=== PATIENT | male | born 2000 | race American Indian/Alaskan Native ===

== ENCOUNTER 2019-06-29 21:07 | Inpatient (IN) | payer OTHER ==
--- NOTE | 2019-06-29 21:14 | Emergency Department Report ---
Blank Doc - Documentation Documentation: 19-year-old male that presents with abdominal pain with n/v. This initial assessment/diagnostic orders/clinical plan/treatment(s) is/are subject to change based on patient's health status, clinical progression and re- assessment by fellow clinical providers in the ED. Further treatment and workup at subsequent clinical providers discretion. Patient/guardians urged not to elope from the ED as their condition may be serious if not clinically assessed and managed. Initial orders include: 1- Patient sent to [facility] for further evaluation and treatment 2- labs 3- UA
[2019-06-29 23:03] LABS: Bacteria,Urine 1+ /HPF (Negative); Bilirubin,Urine NEG (Negative); Blood,Urine NEG (Negative); Color,Urine Yellow (Yellow); Mucus,Urine 2+ /HPF; Protein,Urine <15 mg/dL mg/dL (Negative); Urobilinogen,Urine < 2.0 mg/dL (<2.0)
--- NOTE | 2019-06-29 23:15 | Emergency Department Report ---
ED Abdominal Pain HPI - General Chief Complaint: Abdominal Pain Stated Complaint: ABD PAIN Time Seen by Provider: 06/30/19 00:30 Source: patient Mode of arrival: Ambulatory Limitations: No Limitations - History of Present Illness Initial Comments: Patient is a 19-year-old male that presents emergency room with complaints of abdominal pain that started this morning. Patient also complains of nausea and vomiting. Patient states is not helping him down. Patient states he thought was a stomachache and he took peter tyron and he threw it up several times. Patient denies to take any medication. Patient states the pain is a 9 out of 10. Patient states the pain is worse with movement. Patient states the pain is better with rest. MD Complaint: abdominal pain -: Sudden Location: LLQ Radiation: none Migration to: no migration Severity: severe Severity scale (0 -10): 10 Quality: stabbing Consistency: constant Improves With: rest Worsens With: vomiting, movement Associated Symptoms: nausea, vomiting. denies: diarrhea, fever, chills, constipation, dysuria, hematemesis, hematochezia, melena, hematuria, anorexia, syncope - Related Data Home Medications Medication Instructions Recorded Confirmed Last Taken Biktarvy 50-200-25 mg (Nf) 1 tab PO DAILY 06/30/19 06/30/19 1 Day Ago ~06/29/19 Allergies Allergy/AdvReac Type Severity Reaction Status Date / Time Penicillins Allergy Rash Verified 06/29/19 21:12 ED Review of Systems ROS: Stated complaint: ABD PAIN Other details as noted in HPI Constitutional: denies: chills, fever Eyes: denies: eye pain, eye discharge, vision change ENT: denies: ear pain, throat pain Respiratory: denies: cough, shortness of breath, wheezing Cardiovascular: denies: chest pain, palpitations Endocrine: no symptoms reported Gastrointestinal: abdominal pain, nausea, vomiting. denies: diarrhea Genitourinary: denies: urgency, dysuria Musculoskeletal: denies: back pain, joint swelling, arthralgia Skin: denies: rash, lesions Neurological: denies: headache, weakness, paresthesias Psychiatric: denies: anxiety, depression Hematological/Lymphatic: denies: easy bleeding, easy bruising ED Past Medical Hx - Past Medical History Previous Medical History?: Yes Hx HIV: Yes Additional medical history: HIV + - Surgical History Past Surgical History?: No - Family History Family history: no significant - Social History Smoking Status: Never Smoker Substance Use Type: None - Medications Home Medications: Home Medications Medication Instructions Recorded Confirmed Last Taken Type Biktarvy 50-200-25 mg (Nf) 1 tab PO DAILY 06/30/19 06/30/19 1 Day Ago History ~06/29/19 ED Physical Exam - General Limitations: No Limitations General appearance: alert, in no apparent distress - Head Head exam: Present: atraumatic, normocephalic - Eye Eye exam: Present: normal appearance - ENT ENT exam: Present: mucous membranes moist - Neck Neck exam: Present: normal inspection - Respiratory Respiratory exam: Present: normal lung sounds bilaterally. Absent: respiratory distress - Cardiovascular Cardiovascular Exam: Present: regular rate, normal rhythm. Absent: systolic murmur, diastolic murmur, rubs, gallop - GI/Abdominal GI/Abdominal exam: Present: soft, tenderness (Left lower quadrant tenderness), normal bowel sounds - Rectal Rectal exam: Present: deferred - Extremities Exam Extremities exam: Present: normal inspection - Back Exam Back exam: Present: normal inspection - Neurological Exam Neurological exam: Present: alert, oriented X3 - Psychiatric Psychiatric exam: Present: normal affect, normal mood - Skin Skin exam: Present: warm, dry, intact, normal color. Absent: rash ED Course Vital Signs 06/29/19 06/29/19 06/29/19 21:13 23:08 23:45 Temperature 100.5 F H 99.7 F H Pulse Rate 105 H 97 H Respiratory 20 16 17 Rate Blood Pressure 111/80 Blood Pressure 122/72 [Right] O2 Sat by Pulse 98 100 98 Oximetry 06/30/19 06/30/19 06/30/19 00:56 01:45 02:00 Temperature Pulse Rate 95 H 98 H 102 H Respiratory 22 17 12 Rate Blood Pressure 79/30 87/42 Blood Pressure 89/32 [Right] O2 Sat by Pulse 95 97 97 Oximetry 06/30/19 06/30/19 06/30/19 02:08 02:15 02:30 Temperature 99.7 F H Pulse Rate 102 H 102 H 103 H Respiratory 17 14 20 Rate Blood Pressure 90/37 94/42 Blood Pressure 90/46 [Right] O2 Sat by Pulse 96 96 96 Oximetry 06/30/19 06/30/19 06/30/19 02:48 03:00 03:15 Temperature 100.2 F H Pulse Rate 104 H 102 H 111 H Respiratory 16 22 12 Rate Blood Pressure 84/35 91/38 Blood Pressure 92/58 [Right] O2 Sat by Pulse 97 96 96 Oximetry 06/30/19 06/30/19 06/30/19 03:21 03:30 03:45 Temperature Pulse Rate 105 H 107 H 101 H Respiratory 17 30 H 33 H Rate Blood Pressure 78/34 91/40 Blood Pressure 99/46 [Right] O2 Sat by Pulse 96 96 95 Oximetry 06/30/19 06/30/19 06/30/19 04:00 04:15 04:30 Temperature Pulse Rate 103 H 105 H 112 H Respiratory 18 13 12 Rate Blood Pressure 92/36 97/40 91/39 Blood Pressure [Right] O2 Sat by Pulse 96 94 96 Oximetry 06/30/19 06/30/19 06/30/19 04:45 04:46 05:15 Temperature 98.6 F Pulse Rate 103 H 105 H 99 H Respiratory 16 18 14 Rate Blood Pressure 100/43 95/53 Blood Pressure 98/53 [Right] O2 Sat by Pulse 95 96 96 Oximetry 06/30/19 06/30/19 06/30/19 05:17 05:30 05:45 Temperature Pulse Rate 104 H 100 H 97 H Respiratory 14 24 27 H Rate Blood Pressure 89/32 89/47 Blood Pressure 95/53 [Right] O2 Sat by Pulse 97 96 95 Oximetry 06/30/19 06/30/19 06/30/19 06:00 06:15 06:30 Temperature Pulse Rate 102 H 100 H 102 H Respiratory 27 H 28 H 27 H Rate Blood Pressure 82/46 94/46 95/45 Blood Pressure [Right] O2 Sat by Pulse 95 96 95 Oximetry 06/30/19 06/30/19 06/30/19 06:41 06:45 06:46 Temperature Pulse Rate 95 H 102 H 105 H Respiratory 26 H 18 17 Rate Blood Pressure 116/58 Blood Pressure 105/53 116/58 [Right] O2 Sat by Pulse 96 96 97 Oximetry 06/30/19 06/30/19 06/30/19 07:00 07:15 07:30 Temperature 99.3 F Pulse Rate 98 H 91 H 91 H Respiratory 29 H 27 H 27 H Rate Blood Pressure 104/61 101/57 104/56 Blood Pressure [Right] O2 Sat by Pulse 95 95 96 Oximetry 06/30/19 06/30/19 06/30/19 07:45 08:00 08:15 Temperature Pulse Rate 109 H 92 H 91 H Respiratory 13 27 H 26 H Rate Blood Pressure 105/50 100/49 103/54 Blood Pressure [Right] O2 Sat by Pulse 97 95 96 Oximetry 06/30/19 06/30/19 06/30/19 08:30 08:45 09:00 Temperature Pulse Rate 89 83 83 Respiratory 26 H 24 22 Rate Blood Pressure 101/48 95/51 98/59 Blood Pressure [Right] O2 Sat by Pulse 95 96 95 Oximetry 06/30/19 06/30/19 06/30/19 09:15 09:30 09:45 Temperature Pulse Rate 94 H 85 77 Respiratory 14 27 H 20 Rate Blood Pressure 100/64 109/64 113/64 Blood Pressure [Right] O2 Sat by Pulse 98 95 98 Oximetry 06/30/19 06/30/19 06/30/19 10:00 10:15 10:30 Temperature Pulse Rate 84 77 81 Respiratory 18 17 19 Rate Blood Pressure 99/51 101/59 101/59 Blood Pressure [Right] O2 Sat by Pulse 96 97 Oximetry 06/30/19 06/30/19 06/30/19 10:45 11:00 11:15 Temperature Pulse Rate 95 H 77 79 Respiratory 23 26 H 17 Rate Blood Pressure 103/67 109/71 110/74 Blood Pressure [Right] O2 Sat by Pulse 98 98 99 Oximetry 06/30/19 06/30/19 06/30/19 11:30 11:45 12:00 Temperature Pulse Rate 86 83 76 Respiratory 17 9 L 10 L Rate Blood Pressure 103/67 99/59 99/57 Blood Pressure [Right] O2 Sat by Pulse 97 98 97 Oximetry 06/30/19 06/30/19 06/30/19 12:15 12:30 12:45 Temperature Pulse Rate 87 83 77 Respiratory 16 15 24 Rate Blood Pressure 106/64 112/74 111/73 Blood Pressure [Right] O2 Sat by Pulse 98 98 98 Oximetry 06/30/19 06/30/19 06/30/19 13:00 13:15 13:30 Temperature Pulse Rate 82 81 84 Respiratory 15 11 L 16 Rate Blood Pressure 102/58 98/58 102/63 Blood Pressure [Right] O2 Sat by Pulse 99 98 98 Oximetry 06/30/19 06/30/19 06/30/19 13:45 14:00 14:15 Temperature Pulse Rate 101 H 95 H 95 H Respiratory 13 13 17 Rate Blood Pressure 103/67 106/70 106/80 Blood Pressure [Right] O2 Sat by Pulse 98 98 97 Oximetry 06/30/19 06/30/19 06/30/19 14:30 14:45 15:00 Temperature Pulse Rate 91 H 88 84 Respiratory 28 H 13 29 H Rate Blood Pressure 116/74 110/62 115/70 Blood Pressure [Right] O2 Sat by Pulse 97 97 98 Oximetry 06/30/19 06/30/19 06/30/19 15:15 15:30 15:45 Temperature Pulse Rate 81 82 84 Respiratory 23 12 20 Rate Blood Pressure 112/67 117/75 123/83 Blood Pressure [Right] O2 Sat by Pulse 98 99 98 Oximetry 06/30/19 06/30/19 06/30/19 16:00 16:15 19:00 Temperature Pulse Rate 88 84 84 Respiratory 23 25 H 18 Rate Blood Pressure 115/82 120/80 117/82 Blood Pressure [Right] O2 Sat by Pulse 99 99 99 Oximetry 06/30/19 06/30/19 19:30 20:00 Temperature Pulse Rate 83 85 Respiratory 23 19 Rate Blood Pressure 120/79 121/79 Blood Pressure [Right] O2 Sat by Pulse 98 99 Oximetry - Reevaluation(s) Reevaluation #1: Patient has received 1 L of fluid and his blood pressure has decreased. Patient will receive another liter of fluid. We will continue to monitor blood pressure. 06/30/19 01:01 Reevaluation #2: I discussed all results with patient. I discussed plan of care with patient. Patient agrees with plan of care and admission. Patient to be admitted to the hospitalist service. 06/30/19 01:36 Reevaluation #3: Blood pressure starting to improve. We will continue to monitor blood pressure. Patient is already admitted. 06/30/19 02:38 Reevaluation #4: I discussed the need for central line. Patient refuses central line. Patient states he does not want to have one in his body. I discussed the risk with patient. Patient voiced understanding of the risk and benefits. Patient still refused. Patient will remain on the monitor. Patient's blood pressure is 90/38. 06/30/19 03:14 - Consultations Consultation #1: Hospitalist consulted for admission. Hospitalist to admit patient. Bridge orders placed. 06/30/19 01:37 ED Medical Decision Making - Lab Data Result diagrams: 06/30/19 04:15 06/30/19 04:15 - Radiology Data Radiology results: report reviewed CT ABDOMEN AND PELVIS WITH CONTRAST INDICATION / CLINICAL INFORMATION: Pt complains of L.L.Q. abd pain with nausea vomiting.. TECHNIQUE: Axial CT images were obtained through the abdomen and pelvis after 100 mL Omnipaque [address] scans at this location are performed using CT dose reduction for ALARA by means of automated exposure control. COMPARISON: None available. FINDINGS: LOWER CHEST: No significant abnormality. LIVER: No significant abnormality. GALLBLADDER: No significant abnormality. BILE DUCTS: No significant abnormality. PANCREAS: No significant abnormality. SPLEEN: No significant abnormality. ADRENALS: No significant abnormality. RIGHT KIDNEY and URETER: No significant abnormality. LEFT KIDNEY and URETER: No significant abnormality. STOMACH and SMALL BOWEL: Fluid-filled, nondilated loops of small bowel may represent enteritis. No obstruction. COLON: No significant abnormality. APPENDIX: No significant abnormality. PERITONEUM: No free fluid. No free air. No fluid collection. LYMPH NODES: No significant adenopathy. AORTA and ARTERIES: No significant abnormality. IVC and VEINS: No significant abnormality. URINARY BLADDER: No significant abnormality. REPRODUCTIVE ORGANS: No significant abnormality. ADDITIONAL FINDINGS: None. SKELETAL SYSTEM: No significant abnormality. IMPRESSION: 1. No inflammatory process or bowel obstruction. 2. Fluid-filled, nondilated loops of small bowel which could represent enter itis. - Medical Decision Making Patient is a 19-year-old male who presents emergency room with complaints of abdominal pain. Patient abdominal pain is left lower quadrant. Patient also having nausea and vomiting. Patient had labs done which showed an elevated WBC. Patient's lactic acid was normal. Found to be hypotensive. Patient given multiple liters of fluid. After the 4 L of fluid and the patient's map was still below 70, I recommended central line placement and pressor use. Patient refused to have a central line placed. Patient voiced understanding of the risk. We then discussed the pressure and the patient stated he would rather try fluids before going on to pressors. Patient had blood cultures done. Patient given antibiotics in early in his visit. Patient admitted to the hospitalist service. Critical care documented due to multiple re-evaluations and blood pressure management. - Differential Diagnosis fever, abd pain, hypotension. gsatroenteritis. sirs, diverticulitis Critical Care Time: Yes Critical care time in (mins) excluding proc time.: 65 Critical care attestation.: If time is entered above; I have spent that time in minutes in the direct care of this critically ill patient, excluding procedure time. Critical Care Time: 65 minutes ED Disposition Clinical Impression: SIRS (systemic inflammatory response syndrome), Gastroenteritis, Hyperkalemia Abdominal pain Qualifiers: Abdominal location: left lower quadrant Qualified Code(s): R10.32 - Left lower quadrant pain Nausea & vomiting Qualifiers: Vomiting type: unspecified Vomiting Intractability: non-intractable Qualified Code(s): R11.2 - Nausea with vomiting, unspecified Hypotension Qualifiers: Hypotension type: unspecified hypotension type Qualified Code(s): I95.9 - Hypotension, unspecified Disposition: DC-09 OP ADMIT IP TO THIS HOSP Is pt being admited?: Yes Does the pt Need Aspirin: No Condition: Critical Time of Disposition: 01:30
[2019-06-29] MEDS ORDERED: ACETAMINOPHEN 500 MG TAB PO ONE (23:39)
[2019-06-29] MEDS ORDERED: SODIUM CHLORIDE 0.9% 1000 ML 1,000 ML IV ONE (23:40)
[2019-06-29] MEDS ORDERED: SODIUM CHLORIDE 0.9% 1000 ML 1,000 ML ONE (23:41)
[2019-06-29 23:42] LABS: Basophils % (Auto) 0.2 % (0.0-1.8); Eosinophils % (Auto) 0.1 % (0.0-4.3); Hematocrit 45.2 % (35.5-45.6); Hemoglobin 15.4 gm/dl (11.8-15.2); Lymphocytes # (Auto) 0.7 K/mm3 (1.2-5.4); Lymphocytes % (Auto) 5.6 % (13.4-35.0); Mean Corpuscular HGB Conc 34 % (32-34); Mean Corpuscular Volume 94 fl (84-94); Monocytes % (Auto) 7.6 % (0.0-7.3); Platelet Count 170 K/mm3 (140-440); Red Cell Distribution Width 12.3 % (13.2-15.2)
[2019-06-29] MEDS ORDERED: ACETAMINOPHEN 500 MG TAB ONE (23:42)
[2019-06-30 00:08] LABS: BUN/Creatinine Ratio 14; Blood Urea Nitrogen 13 mg/dL (9-20); Calcium 10.3 mg/dL (8.4-10.2); Hemolysis Index 241
[2019-06-30] MEDS ORDERED: ONDANSETRON 4 MG/2 ML INJ IV ONE (00:11)
[2019-06-30] MEDS ORDERED: HYDROmorphone 1 MG/1 ML INJ IV ONE (00:11)
[2019-06-30 00:14] LABS: Alanine Aminotransferase 10 units/L (7-56)
[2019-06-30] MEDS ORDERED: SODIUM CHLORIDE 0.9% 1000 ML 1,000 ML IV ONE ×5 (00:58→03:56)
--- NOTE | 2019-06-30 01:25 | Cat Scan Report ---
CT ABDOMEN AND PELVIS WITH CONTRAST INDICATION / CLINICAL INFORMATION: Pt complains of L.L.Q. abd pain with nausea vomiting.. TECHNIQUE: Axial CT images were obtained through the abdomen and pelvis after 100 mL Omnipaque [address] scans at this location are performed using CT dose reduction for ALARA by means of automated exposure control. COMPARISON: None available. FINDINGS: LOWER CHEST: No significant abnormality. LIVER: No significant abnormality. GALLBLADDER: No significant abnormality. BILE DUCTS: No significant abnormality. PANCREAS: No significant abnormality. SPLEEN: No significant abnormality. ADRENALS: No significant abnormality. RIGHT KIDNEY and URETER: No significant abnormality. LEFT KIDNEY and URETER: No significant abnormality. STOMACH and SMALL BOWEL: Fluid-filled, nondilated loops of small bowel may represent enteritis. No ob struction. COLON: No significant abnormality. APPENDIX: No significant abnormality. PERITONEUM: No free fluid. No free air. No fluid collection. LYMPH NODES: No significant adenopathy. AORTA and ARTERIES: No significant abnormality. IVC and VEINS: No significant abnormality. URINARY BLADDER: No significant abnormality. REPRODUCTIVE ORGANS: No significant abnormality. ADDITIONAL FINDINGS: None. SKELETAL SYSTEM: No significant abnormality. IMPRESSION: 1. No inflammatory process or bowel obstruction. 2. Fluid-filled, nondilated loops of small bowel which could represent enteritis. Signer Name: Beatrice Isbell MD Signed: 06/30/2019 1:20 AM Workstation Name: [id number]
[2019-06-30] MEDS ORDERED: IBUPROFEN 800 MG TAB PO ONE (02:53)
[2019-06-30] MEDS ORDERED: IBUPROFEN 800 MG TAB ONE (02:54)
[2019-06-30] MEDS ORDERED: metroNIDAZOLE/NS 500 MG/100 ML 500 MG/100 ML BAG IV ONE ×3 (03:52→19:45)
--- NOTE | 2019-06-30 03:59 | History and Physical Report ---
History of Present Illness History of present illness: 19-year-old man with a history of HIV, compliant with medications comes emergency room with complaints of nausea vomiting, diarrhea. Symptoms started today, has had multiple episodes of nausea vomiting, diarrhea. He complains of crampy abdominal pain in the left lower quadrant, intermittent every 5 minutes, intensity 5/10, no radiation, cannot identify exacerbating or relieving factors. No cough, recent travel or sick contacts. Patient has been febrile in the ER, blood pressure has been low, lowest in the 70s, he refused to have a central line. Patient will be admitted for fever gastroenteritis, possible cOVID Review Of Systems: Constitutional: no weight loss, chills Ears, eyes, nose, mouth and throat: no nasal congestion, no nasal discharge, no sinus pressure, blurry vision, diplopia Neck: No neck pain or rigidity. Cardiovascular: No palpitations, chest pain Respiratory: No shortness of breath, cough Gastrointestinal: No hematochezia Genitourinary : no dysuria, frequency Musculoskeletal: no muscle ache , joint pain Integumentary: no rash, no pruritis Neurological: no parathesias, focal weakness Endocrine: no cold or heat intolerance, no polyuria or polydipsia Hematologic/Lymphatic: no easy bruising, no easy bleeding, no gland swelling Allergic/Immunologic: no urticaria, no angioedema. PAST MEDICAL HISTORY: HIV PAST SURGICAL HISTORY: None SOCIAL HISTORY: Denies alcohol, tobacco, drugs FAMILY HISTORY: Hypertension Medications and Allergies Allergies Allergy/AdvReac Type Severity Reaction Status Date / Time Penicillins Allergy Rash Verified 06/29/19 21:12 Home Medications Medication Instructions Recorded Confirmed Last Taken Type Biktarvy 50-200-25 mg (Nf) 1 tab PO DAILY 06/30/19 06/30/19 1 Day Ago History ~06/29/19 Active Meds: Active Medications Metronidazole (Flagyl 500 Mg/100 Ml) 500 mg in 100 mls @ 200 mls/hr IV ONCE O NE; Protocol Stop: 06/30/19 04:21 Sodium Chloride (Nacl 0.9% 1000 Ml) 1,000 mls @ 999 mls/hr IV BOLUS ONE Stop: 06/30/19 04:55 Sodium Chloride (Nacl 0.9% 1000 Ml) 1,000 mls @ 999 mls/hr IV BOLUS ONE Stop: 06/30/19 04:56 Exam - Physical Exam Narrative exam: Gen. appearance: Patient lying in bed, no apparent distress HEENT: Normocephalic, atraumatic, pupils equally round and reactive to light, extraocular movement intact, and no sclericterus,. No JVD or thyromegaly or nodule,neck supple, no carotid bruit ,mucous membranes moist, no exudate or erythema Heart: S1, S2, regular rate and rhythm Lungs: Clear bilaterally, breathing comfortable Abdomen: Positive bowel sounds, nontender, nondistended, no organomegaly Extremity: no edema, cyanosis, clubbing Skin: No rash, nodules, warm, dry Neuro: Cranial nerves II to XII intact, speech is fluent, moves extremities, sensory intact - Constitutional Vitals: Temp Pulse Resp BP Pulse Ox 100.2 F H 107 H 30 H 78/34 96 06/30/19 02:48 06/30/19 03:30 06/30/19 03:30 06/30/19 03:30 06/30/19 03:30 Results - Labs CBC & Chem 7: 06/30/19 04:15 07/01/19 06:54 Labs: Abnormal lab results 06/29/19 06/29/19 06/29/19 Range/Units 23:23 23:23 Unknown WBC 13.3 H (4.5-11.0) K/mm3 Hgb 15.4 H (11.8-15.2) gm/dl RDW 12.3 L (13.2-15.2) % Lymph % (Auto) 5.6 L (13.4-35.0) % Dale % (Auto) 7.6 H (0.0-7.3) % Lymph # 0.7 L (1.2-5.4) K/mm3 Dale # 1.0 H (0.0-0.8) K/mm3 Seg Neutrophils % 86.5 H (40.0-70.0) % Seg Neutrophils # 11.5 H (1.8-7.7) K/mm3 Potassium 5.1 H (3.6-5.0) mmol/L Glucose 114 H (75-100) mg/dL Calcium 10.3 H (8.4-10.2) mg/dL Total Bilirubin 1.60 H (0.1-1.2) mg/dL Total Protein 8.5 H (6.3-8.2) g/dL Lipase 11 L (13-60) units/L Urine pH 8.0 H (5.0-7.0) - Imaging and Cardiology EKG: image reviewed CT scan - abdomen: report reviewed CT scan - pelvis: report reviewed Assessment and Plan Assessment Gastroenteritis, rule out cOVID Start IV fluids, Flagyl, Levaquin Give a dose of Vanco, consult ID send stool for cultures, C. difficile, check influenza COVID form filled out, placed on contact and droplet isolation Relative hypotension Fluid resuscitate DVT prophylaxis
[2019-06-30] MEDS ORDERED: VANCOMYCIN/NS 1 GM/250 ML 1 GM/250 ML BAG IV ONE (04:00)
[2019-06-30] MEDS ORDERED: METOCLOPRAMIDE 10 MG/2 ML INJ IV PRN (04:01)
[2019-06-30] MEDS ORDERED: ONDANSETRON 4 MG/2 ML INJ IV PRN (04:01)
[2019-06-30] MEDS ORDERED: ACETAMINOPHEN 325 MG TAB PO PRN (04:01)
[2019-06-30] MEDS: metroNIDAZOLE/NS 500 MG/100 ML 500 MG/100 ML BAG IV SCH ×3 (04:05→19:48)
[2019-06-30 04:45] LABS: Basophils % (Auto) 0.2 % (0.0-1.8); Hematocrit 35.7 % (35.5-45.6); Hemoglobin 12.4 gm/dl (11.8-15.2); Lymphocytes # (Auto) 0.7 K/mm3 (1.2-5.4); Lymphocytes % (Auto) 6.1 % (13.4-35.0); Mean Corpuscular HGB Conc 35 % (32-34); Mean Corpuscular Volume 95 fl (84-94); Monocytes # (Auto) 0.8 K/mm3 (0.0-0.8); Monocytes % (Auto) 7.3 % (0.0-7.3); Platelet Count 131 K/mm3 (140-440); Red Blood Count 3.77 M/mm3 (3.65-5.03); Red Cell Distribution Width 12.3 % (13.2-15.2)
[2019-06-30 04:57] LABS: BUN/Creatinine Ratio 13; Blood Urea Nitrogen 10 mg/dL (9-20); Calcium 8.2 mg/dL (8.4-10.2); Hemolysis Index 14
[2019-06-30] MEDS ORDERED: SODIUM CHLORIDE 0.9% 1000 ML 1,000 ML ONE (05:27)
[2019-06-30] MEDS: SODIUM CHLORIDE 0.9% 1000 ML 1,000 ML IV SCH (05:36)
[2019-06-30] MEDS ORDERED: ENOXAPARIN 40 MG/0.4 ML INJ SUB-Q SCH (10:00)
--- NOTE | 2019-06-30 11:36 | Progress Note ---
Assessment and Plan Assessment and plan: --Gastroenteritis, rule out cOVID Start IV fluids, Flagyl, Levaquin Give a dose of Vanco, consult ID send stool for cultures, C. difficile, check influenza COVID form filled out by admitting /ER physician, placed on contact and droplet isolation COVID 19 test send this afternoon ID evaluation and recommendations noted and appreciated --Leukocytosis; present on admission Improved --Hypokalemia; replaced with KCl Monitor electrolytes --Hypotension; present on admission Fluid resuscitation, mild improvement --History of HIV/AIDS; on antiretrovirals --DVT prophylaxis; Lovenox Monitor closely and adjust management as needed Contact and droplet isolation Follow [facility] department for Covid test results Patient feels that he is doing well, and does not want to stay in the hospital Risks and consequences and complications of refusing the treatment Was explained to him in detail, he insisted to leave AMA I discussed patient's concerns and plans of leaving AMA with the patient's nurse Advanced care 35 minutes History Interval history: Patient seen and evaluated in ER awaiting bed assignment Patient's chart, medications, imaging studies and tests reviewed Hospitalist Physical - Constitutional Vitals: Temp Pulse Resp BP Pulse Ox 99.3 F 83 22 98/59 95 06/30/19 07:30 06/30/19 09:00 06/30/19 09:00 06/30/19 09:00 06/30/19 09:00 General appearance: Present: no acute distress, well-nourished - EENT Eyes: Present: PERRL, EOM intact - Neck Neck: Present: supple, normal ROM - Respiratory Respiratory effort: normal Respiratory: bilateral: diminished, rhonchi, wheezing, negative: rales - Cardiovascular Rhythm: regular Heart Sounds: Present: S1 & S2 - Extremities Extremities: no ischemia, No edema - Abdominal General gastrointestinal: soft, non-tender, non-distended, normal bowel sounds - Integumentary Integumentary: Present: clear, warm - Psychiatric Psychiatric: appropriate mood/affect, cooperative - Neurologic Neurologic: moves all extremities Results - Labs CBC & Chem 7: 06/30/19 04:15 06/30/19 04:15 Labs: Laboratory Last Values WBC 11.0 K/mm3 (4.5-11.0) 06/30/19 04:15 RBC 3.77 M/mm3 (3.65-5.03) 06/30/19 04:15 Hgb 12.4 gm/dl (11.8-15.2) D 06/30/19 04:15 Hct 35.7 % (35.5-45.6) D 06/30/19 04:15 MCV 95 fl (84-94) H 06/30/19 04:15 MCH 33 pg (28-32) H 06/30/19 04:15 MCHC 35 % (32-34) H 06/30/19 04:15 RDW 12.3 % (13.2-15.2) L 06/30/19 04:15 Plt Count 131 K/mm3 (140-440) L 06/30/19 04:15 Lymph % (Auto) 6.1 % (13.4-35.0) L 06/30/19 04:15 [place] % (Auto) 7.3 % (0.0-7.3) 06/30/19 04:15 Eos % (Auto) 0.0 % (0.0-4.3) 06/30/19 04:15 Baso % (Auto) 0.2 % (0.0-1.8) 06/30/19 04:15 Lymph # 0.7 K/mm3 (1.2-5.4) L 06/30/19 04:15 [place] # 0.8 K/mm3 (0.0-0.8) 06/30/19 04:15 Eos # 0.0 K/mm3 (0.0-0.4) 06/30/19 04:15 Baso # 0.0 K/mm3 (0.0-0.1) 06/30/19 04:15 Seg Neutrophils % 86.4 % (40.0-70.0) H 06/30/19 04:15 Seg Neutrophils # 9.5 K/mm3 (1.8-7.7) H 06/30/19 04:15 Sodium 139 mmol/L (137-145) 06/30/19 04:15 Potassium 3.4 mmol/L (3.6-5.0) L D 06/30/19 04:15 Chloride 104.6 mmol/L (98-107) 06/30/19 04:15 Carbon Dioxide 20 mmol/L (22-30) L 06/30/19 04:15 Anion Gap 18 mmol/L 06/30/19 04:15 BUN 10 mg/dL (9-20) 06/30/19 04:15 Creatinine 0.8 mg/dL (0.8-1.5) 06/30/19 04:15 Estimated GFR > 60 ml/min 06/30/19 04:15 BUN/Creatinine Ratio 13 % 06/30/19 04:15 Glucose 104 mg/dL (75-100) H 06/30/19 04:15 Lactic Acid 0.70 mmol/L (0.7-2.0) 06/30/19 03:54 Calcium 8.2 mg/dL (8.4-10.2) L D 06/30/19 04:15 Total Bilirubin 1.60 mg/dL (0.1-1.2) H 06/29/19 23:23 AST 28 units/L (5-40) 06/29/19 23:23 ALT 10 units/L (7-56) 06/29/19 23:23 Alkaline Phosphatase 97 units/L (35-129) 06/29/19 23:23 Total Protein 8.5 g/dL (6.3-8.2) H 06/29/19 23:23 Albumin 5.0 g/dL (3.9-5) 06/29/19 23:23 Albumin/Globulin Ratio 1.4 % 06/29/19 23:23 Lipase 11 units/L (13-60) L 06/29/19 23:23 Urine Color Yellow (Yellow) 06/29/19 Unknown Urine Turbidity Clear (Clear) 06/29/19 Unknown Urine pH 8.0 (5.0-7.0) H 06/29/19 Unknown Ur Specific [place] 1.023 (1.003-1.030) 06/29/19 Unknown Urine Protein <15 mg/dl mg/dL (Negative) 06/29/19 Unknown Urine Glucose (UA) Neg mg/dL (Negative) 06/29/19 Unknown Urine Ketones Tr mg/dL (Negative) 06/29/19 Unknown Urine Blood Neg (Negative) 06/29/19 Unknown Urine Nitrite Neg (Negative) 06/29/19 Unknown Urine Bilirubin Neg (Negative) 06/29/19 Unknown Urine Urobilinogen < 2.0 mg/dL (<2.0) 06/29/19 Unknown Ur Leukocyte Esterase Neg (Negative) 06/29/19 Unknown Urine WBC (Auto) 2.0 /HPF (0.0-6.0) 06/29/19 Unknown Urine RBC (Auto) 2.0 /HPF (0.0-6.0) 06/29/19 Unknown U Epithel Cells (Auto) 1.0 /HPF (0-13.0) 06/29/19 Unknown Urine Bacteria (Auto) 1+ /HPF (Negative) 06/29/19 Unknown Urine Mucus 2+ /HPF 06/29/19 Unknown Microbiology: Microbiology 06/30/19 03:54 Peripheral/Venous Blood Culture - Preliminary Culture in Progress 06/30/19 04:15 Peripheral/Venous Blood Culture - Preliminary Culture in Progress Miller/IV: IV Catheter Type [Left Forearm INT / Saline Lock ] Active Medications - Current Medications Current Medications: Generic Name Dose Route Start Last Admin Trade Name Freq PRN Reason Stop Dose Admin Acetaminophen 650 mg 06/30/19 04:01 Tylenol PO Q4H PRN Pain MILD(1-3)/Fever >100.5/EAST Metronidazole 500 mg in 100 mls @ 200 mls/hr 06/30/19 04:00 06/30/19 04:35 Flagyl 500 Mg/100 Ml IV Infused Q8H KATHARINA Infusion Protocol Levofloxacin/Dextrose 750 mg in 150 mls @ 100 mls/hr 06/30/19 10:00 06/30/19 10:05 Levaquin 750mg/150ml IV 100 mls/hr Q24HR KATHARINA Administration Protocol Sodium Chloride 1,000 mls @ 150 mls/hr 06/30/19 04:15 06/30/19 05:36 Nacl 0.9% 1000 Ml IV 150 mls/hr DIRECT KATHARINA Administration Metoclopramide HCl 10 mg 06/30/19 04:01 Reglan IV Q6H PRN Nausea And Vomiting Ondansetron HCl 4 mg 06/30/19 04:01 Zofran IV Q4H PRN Nausea And Vomiting Sodium Chloride 10 ml 06/30/19 10:00 06/30/19 10:05 Sodium Chloride Flush Syringe 10 Ml IV 10 ml BID KATHARINA Administration Sodium Chloride 10 ml 06/30/19 04:01 Sodium Chloride Flush Syringe 10 Ml IV PRN PRN LINE FLUSH
--- NOTE | 2019-06-30 11:44 | XRay Report ---
CHEST 1 VIEW INDICATION / CLINICAL INFORMATION: fever,. COMPARISON: None available. FINDINGS: SUPPORT DEVICES: None. HEART / MEDIASTINUM: No significant abnormality. LUNGS / PLEURA: No significant pulmonary or pleural abnormality. No pneumothorax. ADDITIONAL FINDINGS: No significant additional findings. IMPRESSION: No acute pulmonary or pleural abnormality Signer Name: Marcus Collier MD FACR Signed: 06/30/2019 11:40 AM Workstation Name: [id number]
--- NOTE | 2019-06-30 17:15 | Consultation ---
History of Present Illness - Reason for Consult Consult date: 06/30/19 - History of Present Illness 19-year-old man past medical history HIV (on treatment) admitted to the hospital with complaints of nausea, vomiting, diarrhea. He has symptoms began approximately 1 day prior to admission and were associated with abdominal pain that was crampy in character. Denies any recent sick contacts or recent travel. He was admitted for enteritis as well as COVID-19 rule out. Febrile to 100.5 degrees with a elevated white count 13 with an associated lymphopenia. He is currently receiving levofloxacin and Flagyl. Blood cultures currently pending, stool cultures have been collected. Imaging personally reviewed: CT abdomen pelvis: Possible enteritis. Chest x-ray: No acute abnormality. Review of Systems: Bold if positive, otherwise negative General: fevers, chills, rigors HEENT: visual disturbance, diplopia, eye pain Respiratory: cough, sputum, hemoptysis, shortness of breath Cardiovascular: chest pain, syncope Gastrointestinal: nausea, vomiting, diarrhea, abdominal pain Genitourinary: dysuria, hematuria, flank pain Musculoskeletal: neck pain, back pain, joint pain, edema Neurologic: headaches, seizures Hematologic: easy bruising or bleeding Endocrine: night sweats, acute weight loss Skin: rash, jaundice, redness Psychiatric: suicidal, homicidal ideation Past History Past Medical History: other (HIV) Past Surgical History: No surgical history Social history: no significant social history Family history: hypertension Medications and Allergies Allergies Allergy/AdvReac Type Severity Reaction Status Date / Time Penicillins Allergy Rash Verified 06/29/19 21:12 Home Medications Medication Instructions Recorded Confirmed Last Taken Type Biktarvy 50-200-25 mg (Nf) 1 tab PO DAILY 06/30/19 06/30/19 1 Day Ago History ~06/29/19 Active Meds: Active Medications Acetaminophen (Tylenol) 650 mg PO Q4H PRN PRN Reason: Pain MILD(1-3)/Fever >100.5/EAST Metronidazole (Flagyl 500 Mg/100 Ml) 500 mg in 100 mls @ 200 mls/hr IV Q8H KATHARINA; Protocol Last Infusion: 06/30/19 13:22 Dose: Infused Documented by: Levofloxacin/Dextrose (Levaquin 750mg/150ml) 750 mg in 150 mls @ 100 mls/hr IV Q24HR KATHARINA; Protocol Last Infusion: 06/30/19 11:35 Dose: Infused Documented by: Sodium Chloride (Nacl 0.9% 1000 Ml) 1,000 mls @ 150 mls/hr IV DIRECT [facility] Last Admin: 06/30/19 05:36 Dose: 150 mls/hr Documented by: Metoclopramide HCl (Reglan) 10 mg IV Q6H PRN PRN Reason: Nausea And Vomiting Ondansetron HCl (Zofran) 4 mg IV Q4H PRN PRN Reason: Nausea And Vomiting Sodium Chloride (Sodium Chloride Flush Syringe 10 Ml) 10 ml IV BID [facility] Last Admin: 06/30/19 10:05 Dose: 10 ml Documented by: Sodium Chloride (Sodium Chloride Flush Syringe 10 Ml) 10 ml IV PRN PRN PRN Reason: LINE FLUSH Physical Examination - Physical Exam Narrative exam: Physical Exam: Constitutional: Alert, cooperative. No acute distress Head, Ears, Nose: Normocephalic, atraumatic. External ears, nose normal Eyes: Conjunctivae/corneas clear. No icterus. No ptosis. Neck: Supple, no meningeal signs Oral: dentition fair, no thrush Cardiovascular: S1, S2 normal. Respiratory: Good air entry, clear to auscultation bilaterally GI: Soft,+ tender; bowel sounds normal. No peritoneal signs. Musculoskeletal: No pedal edema, no cyanosis. Skin: No rash or abscess Hem/Lymphatic: No palpable cervical or supraclavicular nodes. No lymphangitis Psych: Mood ok. Affect normal Neurological: Awake, alert, oriented. No gross abnormality - Constitutional Vitals: Vital Signs Temp Pulse Resp BP Pulse Ox 99.3 F 84 25 H 120/80 99 06/30/19 07:30 06/30/19 16:15 06/30/19 16:15 06/30/19 16:15 06/30/19 16:15 Temperature -Last 24 Hours Temperature 99.3 F Temperature 98.6 F Temperature 100.2 F Temperature 99.7 F Temperature 99.7 F Temperature 100.5 F Results - Labs CBC & Chem 7: 06/30/19 04:15 06/30/19 04:15 Labs: Abnormal lab results 06/29/19 06/29/19 06/29/19 Range/Units 23:23 23:23 Unknown WBC 13.3 H (4.5-11.0) K/mm3 Hgb 15.4 H (11.8-15.2) gm/dl MCV (84-94) fl MCH (28-32) pg MCHC (32-34) % RDW 12.3 L (13.2-15.2) % Plt Count (140-440) K/mm3 Lymph % (Auto) 5.6 L (13.4-35.0) % [place] % (Auto) 7.6 H (0.0-7.3) % Lymph # 0.7 L (1.2-5.4) K/mm3 [place] # 1.0 H (0.0-0.8) K/mm3 Seg Neutrophils % 86.5 H (40.0-70.0) % Seg Neutrophils # 11.5 H (1.8-7.7) K/mm3 Potassium 5.1 H (3.6-5.0) mmol/L Carbon Dioxide (22-30) mmol/L Glucose 114 H (75-100) mg/dL Calcium 10.3 H (8.4-10.2) mg/dL Total Bilirubin 1.60 H (0.1-1.2) mg/dL Total Protein 8.5 H (6.3-8.2) g/dL Lipase 11 L (13-60) units/L Urine pH 8.0 H (5.0-7.0) 06/30/19 06/30/19 Range/Units 04:15 04:15 WBC (4.5-11.0) K/mm3 Hgb (11.8-15.2) gm/dl MCV 95 H (84-94) fl MCH 33 H (28-32) pg MCHC 35 H (32-34) % RDW 12.3 L (13.2-15.2) % Plt Count 131 L (140-440) K/mm3 Lymph % (Auto) 6.1 L (13.4-35.0) % [place] % (Auto) (0.0-7.3) % Lymph # 0.7 L (1.2-5.4) K/mm3 [place] # (0.0-0.8) K/mm3 Seg Neutrophils % 86.4 H (40.0-70.0) % Seg Neutrophils # 9.5 H (1.8-7.7) K/mm3 Potassium 3.4 L D (3.6-5.0) mmol/L Carbon Dioxide 20 L (22-30) mmol/L Glucose 104 H (75-100) mg/dL Calcium 8.2 L D (8.4-10.2) mg/dL Total Bilirubin (0.1-1.2) mg/dL Total Protein (6.3-8.2) g/dL Lipase (13-60) units/L Urine pH (5.0-7.0) Assessment and Plan Cultures: Blood culture 06/30/2019 no growth to date Stool culture 06/30/2019 many lymphocytes A/P: 19-year-old man past medical history HIV admitted to hospital with nausea, vomiting, diarrhea, and abdominal pain. #COVID-19 rule out: Patient presenting with likely abdominal symptoms, which can be consistent with a COVID-19 infection prior to developing respiratory symptoms. He has been febrile and has lymphopenia. Department of Health form has been filled out, follow-up test results. #Enteritis: Seen on CT. Agree with current treatment plan of levofloxacin and Flagyl. #HIV: Well controlled with Biktarvy, unfortunately we do not have that medication on formulary here. Will start dolutegravir, emtricitabine, tenofovir as individual components. Recs: -Continue contact and droplet precautions -Follow-up COVID-19 testing to Department of Health -Started emtricitabine, dolutegravir, tenofovir -Continue levofloxacin and Flagyl for enteritis. -Follow-up C. difficile Thank you for the consult, we will continue to follow. MD Shadia [facility] ([facility]) M: [phone] O: [phone] F: [phone]
[2019-06-30] MEDS: EMTRICITABINE 200 MG CAP PO SCH (18:53)
[2019-06-30] MEDS: DOLUTEGRAVIR 50 MG TAB PO SCH (18:53)
[2019-06-30] MEDS: TENOFOVIR 300 MG TAB PO SCH (18:53)
[2019-07-01] MEDS: SODIUM CHLORIDE 0.9% 1000 ML 1,000 ML IV SCH (01:02)
[2019-07-01] MEDS: metroNIDAZOLE/NS 500 MG/100 ML 500 MG/100 ML BAG IV SCH ×2 (05:24→12:26)
[2019-07-01 07:46] LABS: BUN/Creatinine Ratio 7; Blood Urea Nitrogen 6 mg/dL (9-20); Calcium 8.7 mg/dL (8.4-10.2); Hemolysis Index 10
--- NOTE | 2019-07-01 09:19 | Progress Note ---
Assessment and Plan Assessment and plan: --r/o Covid -19 --Hypokalemia; K3.4 replace with KCl 40 mEq p.o. x1 Monitor electrolytes --Hypomagnesemia, magnesium 1.4 Replenish with mag sulfate 3 g IV --Gastroenteritis, rule out cOVID Start IV fluids, Flagyl, Levaquin Give a dose of Vanco, consult ID send stool for cultures, C. difficile, check influenza COVID form filled out by admitting /ER physician, placed on contact and droplet isolation COVID 19 test send this afternoon ID following --Leukocytosis; present on admission Improved --Hypotension; present on admission Fluid resuscitation, mild improvement --History of HIV/AIDS; on antiretrovirals --DVT prophylaxis; Lovenox Monitor closely and adjust management as needed Contact and droplet isolation Follow [facility] department for Covid test results Patient feels that he is doing well, and does not want to stay in the hospital Risks and consequences and complications of refusing the treatment Was explained to him in detail, he insisted to leave AMA I discussed patient's concerns and plans of leaving AMA with the patient's nurse Advanced care 35 minutes Hospitalist Physical - Constitutional Vitals: Temp Pulse Resp BP Pulse Ox 98.2 F 77 18 110/82 99 07/01/19 04:02 07/01/19 04:02 07/01/19 04:02 07/01/19 04:02 07/01/19 04:02 General appearance: Present: no acute distress, well-nourished Results - Labs CBC & Chem 7: 06/30/19 04:15 07/01/19 06:54 Labs: Laboratory Last Values WBC 11.0 K/mm3 (4.5-11.0) 06/30/19 04:15 RBC 3.77 M/mm3 (3.65-5.03) 06/30/19 04:15 Hgb 12.4 gm/dl (11.8-15.2) D 06/30/19 04:15 Hct 35.7 % (35.5-45.6) D 06/30/19 04:15 MCV 95 fl (84-94) H 06/30/19 04:15 MCH 33 pg (28-32) H 06/30/19 04:15 MCHC 35 % (32-34) H 06/30/19 04:15 RDW 12.3 % (13.2-15.2) L 06/30/19 04:15 Plt Count 131 K/mm3 (140-440) L 06/30/19 04:15 Lymph % (Auto) 6.1 % (13.4-35.0) L 06/30/19 04:15 [place] % (Auto) 7.3 % (0.0-7.3) 06/30/19 04:15 Eos % (Auto) 0.0 % (0.0-4.3) 06/30/19 04:15 Baso % (Auto) 0.2 % (0.0-1.8) 06/30/19 04:15 Lymph # 0.7 K/mm3 (1.2-5.4) L 06/30/19 04:15 [place] # 0.8 K/mm3 (0.0-0.8) 06/30/19 04:15 Eos # 0.0 K/mm3 (0.0-0.4) 06/30/19 04:15 Baso # 0.0 K/mm3 (0.0-0.1) 06/30/19 04:15 Seg Neutrophils % 86.4 % (40.0-70.0) H 06/30/19 04:15 Seg Neutrophils # 9.5 K/mm3 (1.8-7.7) H 06/30/19 04:15 Sodium 140 mmol/L (137-145) 07/01/19 06:54 Potassium 3.4 mmol/L (3.6-5.0) L 07/01/19 06:54 Chloride 105.1 mmol/L (98-107) 07/01/19 06:54 Carbon Dioxide 20 mmol/L (22-30) L 07/01/19 06:54 Anion Gap 18 mmol/L 07/01/19 06:54 BUN 6 mg/dL (9-20) L 07/01/19 06:54 Creatinine 0.9 mg/dL (0.8-1.5) 07/01/19 06:54 Estimated GFR > 60 ml/min 07/01/19 06:54 BUN/Creatinine Ratio 7 % 07/01/19 06:54 Glucose 83 mg/dL (75-100) 07/01/19 06:54 Lactic Acid 0.70 mmol/L (0.7-2.0) 06/30/19 03:54 Calcium 8.7 mg/dL (8.4-10.2) 07/01/19 06:54 Magnesium 1.40 mg/dL (1.7-2.3) L 07/01/19 06:54 Total Bilirubin 1.60 mg/dL (0.1-1.2) H 06/29/19 23:23 AST 28 units/L (5-40) 06/29/19 23:23 ALT 10 units/L (7-56) 06/29/19 23:23 Alkaline Phosphatase 97 units/L (35-129) 06/29/19 23:23 Total Protein 8.5 g/dL (6.3-8.2) H 06/29/19 23:23 Albumin 5.0 g/dL (3.9-5) 06/29/19 23:23 Albumin/Globulin Ratio 1.4 % 06/29/19 23:23 Lipase 11 units/L (13-60) L 06/29/19 23:23 Urine Color Yellow (Yellow) 06/29/19 Unknown Urine Turbidity Clear (Clear) 06/29/19 Unknown Urine pH 8.0 (5.0-7.0) H 06/29/19 Unknown Ur Specific [place] 1.023 (1.003-1.030) 06/29/19 Unknown Urine Protein <15 mg/dl mg/dL (Negative) 06/29/19 Unknown Urine Glucose (UA) Neg mg/dL (Negative) 06/29/19 Unknown Urine Ketones Tr mg/dL (Negative) 06/29/19 Unknown Urine Blood Neg (Negative) 06/29/19 Unknown Urine Nitrite Neg (Negative) 06/29/19 Unknown Urine Bilirubin Neg (Negative) 06/29/19 Unknown Urine Urobilinogen < 2.0 mg/dL (<2.0) 06/29/19 Unknown Ur Leukocyte Esterase Neg (Negative) 06/29/19 Unknown Urine WBC (Auto) 2.0 /HPF (0.0-6.0) 06/29/19 Unknown Urine RBC (Auto) 2.0 /HPF (0.0-6.0) 06/29/19 Unknown U Epithel Cells (Auto) 1.0 /HPF (0-13.0) 06/29/19 Unknown Urine Bacteria (Auto) 1+ /HPF (Negative) 06/29/19 Unknown Urine Mucus 2+ /HPF 06/29/19 Unknown Influenza A (Rapid) Negative (Negative) 06/30/19 10:35 Influenza B (Rapid) Negative (Negative) 06/30/19 10:35 Microbiology: Microbiology 06/30/19 03:54 Peripheral/Venous Blood Culture - Preliminary NO GROWTH AFTER 24 HOURS 06/30/19 04:15 Peripheral/Venous Blood Culture - Preliminary NO GROWTH AFTER 24 HOURS 06/30/19 10:35 Stool Stool for WBCs - Final Many Polymorphonuclear Cells Seen Miller/IV: Voiding Method Toilet IV Catheter Type [Left Forearm INT / Saline Lock ] Active Medications - Current Medications Current Medications: Generic Name Dose Route Start Last Admin Trade Name Freq PRN Reason Stop Dose Admin Acetaminophen 650 mg 06/30/19 04:01 07/01/19 01:07 Tylenol PO 650 mg Q4H PRN Administration Pain MILD(1-3)/Fever >100.5/EAST Emtricitabine 200 mg 06/30/19 17:30 06/30/19 18:53 Emtriva PO Not Given QDAY KATHARINA Metronidazole 500 mg in 100 mls @ 200 mls/hr 06/30/19 04:00 07/01/19 05:24 Flagyl 500 Mg/100 Ml IV 100 mls/hr Q8H KATHARINA Administration Protocol Levofloxacin/Dextrose 750 mg in 150 mls @ 100 mls/hr 06/30/19 10:00 06/30/19 11:35 Levaquin 750mg/150ml IV Infused Q24HR KATHARINA Infusion Protocol Sodium Chloride 1,000 mls @ 150 mls/hr 06/30/19 04:15 07/01/19 01:02 Nacl 0.9% 1000 Ml IV 150 mls/hr DIRECT KATHARINA Administration Metoclopramide HCl 10 mg 06/30/19 04:01 Reglan IV Q6H PRN Nausea And Vomiting Ondansetron HCl 4 mg 06/30/19 04:01 Zofran IV Q4H PRN Nausea And Vomiting Sodium Chloride 10 ml 06/30/19 10:00 07/01/19 01:01 Sodium Chloride Flush Syringe 10 Ml IV 10 ml BID KATHARINA Administration Sodium Chloride 10 ml 06/30/19 04:01 Sodium Chloride Flush Syringe 10 Ml IV PRN PRN LINE FLUSH Tenofovir Disoproxil Fumarate 300 mg 06/30/19 17:30 06/30/19 18:53 Viread PO Not Given QDAY KATHARINA
[2019-07-01] MEDS ORDERED: POTASSIUM CHLORIDE ER 20 MEQ TAB PO NR (10:00)
[2019-07-01] MEDS ORDERED: MAGNESIUM SULFATE 3 GM in SODIUM CHLORIDE 0.9% 100 ML IV ONE (10:00)
[2019-07-01] MEDS: DOLUTEGRAVIR 50 MG TAB PO SCH (11:18)
[2019-07-01] MEDS: TENOFOVIR 300 MG TAB PO SCH (11:18)
[2019-07-01] MEDS: EMTRICITABINE 200 MG CAP PO SCH (11:19)
[2019-07-01 13:09] VITALS: BP 116/77
--- NOTE | 2019-07-01 20:04 | Discharge Summary ---
Providers - Providers Date of Admission: 06/30/19 05:02 Attending physician: DAYANNA SEVILLA 06/30/19 04:01 Consult to Physician [CONS] Routine Comment: Consulting Provider: IRVIN SMALLS Physician Instructions: Reason For Exam: hiv/diarrhea Primary care physician: [employer] Hospitalization Reason for admission: Vomiting diarrhea low-grade fever Condition: Fair Pertinent studies: Chest x-ray; no acute abnormality CT abdomen and pelvis; no inflammatory process or bowel obstruction Fluid-filled nondilated loops of small bowel could represent enteritis Hospital course: 19-year-old man with a history of HIV, compliant with medications comes emergency room with complaints of nausea vomiting, diarrhea. Symptoms started today, has had multiple episodes of nausea vomiting, diarrhea. He complains of crampy abdominal pain in the left lower quadrant, intermittent every 5 minutes, intensity 5/10, no radiation, cannot identify exacerbating or relieving factors. No cough, recent travel or sick contacts. Patient has been febrile in the ER, blood pressure has been low, lowest in the 70s, he refused to have a central line. Patient will be admitted for fever gastroenteritis, possible cOVID Patient was evaluated by ID, managed appropriately, placed on droplet and contact isolation, all the protocols of Covid 19 were followed. However patient refused to stay in the hospital and wanted to leave AGAINST MEDICAL ADVICE I personally discussed in detail the risks and consequences and complications of leaving AGAINST MEDICAL ADVICE explained to the patient I also discussed about self quarantine till Covid tests results are available. He was adamant and signed the necessary papers and left AMA Patient was advised to self quarantine for 14 days total Health department will contact him with call with test result If negative, no need for quarantine If positive advised self quarantine and contact and droplet precautions For total 14 days Advised him to contact primary care physician or health department for any needs Discharge diagnosis; --r/o Covid -19 --Hypokalemia; K3.4 replace with KCl 40 mEq p.o. x1 Monitor electrolytes --Hypomagnesemia, magnesium 1.4 Replenish with mag sulfate 3 g IV --Gastroenteritis, rule out cOVID Start IV fluids, Flagyl, Levaquin Give a dose of Vanco, consult ID stool for cultures, C. difficile, check influenza COVID form filled out by admitting /ER physician, placed on contact and droplet isolation COVID 19 test send ,ID following --Leukocytosis; present on admission --Hypotension; present on admission Fluid resuscitation, mild improvement --History of HIV/AIDS; on antiretrovirals --DVT prophylaxis; Lovenox Monitor closely and adjust management as needed Contact and droplet isolation Follow [facility] for Covid test results Patient feels that he is doing well, and does not want to stay in the hospital Risks and consequences and complications of refusing the treatment Was explained to him in detail, he insisted to leave AMA Patient signed the necessary papers and left AMA Advanced care 35 minutes Disposition: [id number] LEFT AGAINST MED ADVICE Time spent for discharge: 35 min Core Measure Documentation - Palliative Care Palliative Care/ Comfort Measures: Not Applicable - Core Measures Any of the following diagnoses?: none Exam - Constitutional Vitals: Temp Pulse Resp BP Pulse Ox 98.4 F 87 18 116/77 98 07/01/19 12:02 07/01/19 12:02 07/01/19 12:02 07/01/19 12:02 07/01/19 12:02 General appearance: Present: mild distress, well-nourished - EENT Eyes: Present: PERRL, EOM intact - Neck Neck: Present: supple, normal ROM - Respiratory Respiratory effort: normal Respiratory: bilateral: diminished, negative: rales, rhonchi, wheezing - Cardiovascular Rhythm: regular Heart Sounds: Present: S1 & S2 - Extremities Extremities: no ischemia, No edema - Abdominal General gastrointestinal: Present: soft, non-tender, non-distended, normal bowel sounds - Integumentary Integumentary: Present: clear, warm - Musculoskeletal Musculoskeletal: strength equal bilaterally, generalized weakness - Psychiatric Psychiatric: appropriate mood/affect, cooperative - Neurologic Neurologic: CNII-XII intact, moves all extremities Plan Activity: advance as tolerated Diet: regular Additional Instructions: Patient was advised to self quarantine for 14 days total. Health department will contact him with call with test result. If negative, no need for quarantine. If positive advised self quarantine and contact and droplet precautions. For total 14 days. Advised him to contact primary care physician or health department for any needs Follow up with: PJ SINHA MD [Primary Care Provider] - 3-5 Days
== END 2019-07-01 16:10 | disposition left against medical advice (07) | DRG 977 ==
LOC: ED 21:07 → IMCU 06-30 04:27 → UNDOADMIN 06-30 04:27 → 4A 06-30 05:02 → IMCU 06-30 08:35 → 4A 06-30 23:43 → 3A 07-01 09:38
PROVIDERS: ADMIT Internal Medicine; ATTEND Internal Medicine
DX: K52.9 Noninfective gastroenteritis and colitis, unspecified (principal); B20 Human immunodeficiency virus [HIV] disease; R65.10 Systemic inflammatory response syndrome (SIRS) of non-infectious origin without acute organ dysfunction; Z53.29 Procedure and treatment not carried out because of patient's decision for other reasons; E87.5 Hyperkalemia; E83.42 Hypomagnesemia; Z88.0 Allergy status to penicillin; Z82.49 Family history of ischemic heart disease and other diseases of the circulatory system; Z20.828 Contact with and (suspected) exposure to other viral communicable diseases
CPT/HCPCS: 36415; 71045; 74177; 80048; 80053; 81001; 82140; 83690; 83735; 85007; 85025; 87040; 87045; 87400; G0378; J1956; J2405; J3370; J3475; J7030; Q9967

== ENCOUNTER 2020-02-12 14:11 | Emergency (ER) | payer OTHER, SELFPAY ==
[2020-02-12 14:37] VITALS: BP 118/84
--- NOTE | 2020-02-12 14:59 | Emergency Department Report ---
Chief Complaint: Urogenital-Male Stated Complaint: GENITIAL/ANUS WARTS/ULCERS/PENIS - HPI History of Present Illness: 19-year-old -M[place] male presents to the emergency room for STD evaluation. Patient states that he has genital warts around his anus penile discharge and sores in his mouth. Patient reports he is HIV positive and states that he is undetectable. Patient reports he is followed by [facility]. Patient states he takes his antiviral medications. He has not taken anything for his pain. - Exam Vital Signs: Vital Signs 02/12/20 14:16 Temperature 98.3 F Pulse Rate 61 Respiratory 18 Rate Blood Pressure 118/84 O2 Sat by Pulse 99 Oximetry MSE screening note: Focused history and physical exam performed. Due to findings the following was ordered: 19-year-old -Maltese male presents to the emergency room for STD evaluation. Patient states that he has genital warts around his anus penile discharge and sores in his mouth. Patient reports he is HIV positive and states that he is undetectable. Patient reports he is followed by [facility]. Patient states he takes his antiviral medications. He has not taken anything for his pain. Referral to Dr. Tran for further evaluation and treatment. ED Disposition for MSE Is pt being admited?: No Does the pt Need Aspirin: No Condition: Stable Additional Instructions: follow up infection disease. Referrals: SHAE TRAN MD [Staff Physician] - 3-5 Days
== END 2020-02-12 15:32 | disposition left against medical advice (07) ==
LOC: ED 14:11
DX: A63.0 Anogenital (venereal) warts (principal); Z53.21 Procedure and treatment not carried out due to patient leaving prior to being seen by health care provider

== ENCOUNTER 2020-02-18 01:06 | Emergency (ER) | payer SELFPAY ==
[2020-02-18] MEDS ORDERED: IBUPROFEN 600 MG TAB PO ONE (02:47)
[2020-02-18] MEDS ORDERED: ONDANSETRON 4 MG ODT TAB PO ONE (02:48)
[2020-02-18] MEDS ORDERED: HYDROcodone/ACETAMINOPHEN 5-325 MG TAB PO ONE (02:48)
--- NOTE | 2020-02-18 02:48 | XRay Report ---
RIGHT HAND 3 VIEWS INDICATION / CLINICAL INFORMATION: right hand pain. COMPARISON: None available. FINDINGS: There appears to be a mildly displaced fracture of the head of the fifth metacarpal. Recommend correl ation with point tenderness. There is no other acute fracture or subluxation. Signer Name: Christ Milton MD Signed: 02/18/2020 2:43 AM Workstation Name: [id number]
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
[2020-02-18 05:25] VITALS: BP 120/82
== END 2020-02-18 04:40 | disposition home or self-care (01) ==
LOC: ED 01:06
DX: S62.336A Displaced fracture of neck of fifth metacarpal bone, right hand, initial encounter for closed fracture (principal); S60.221A Contusion of right hand, initial encounter; Z21 Asymptomatic human immunodeficiency virus [HIV] infection status; Z88.0 Allergy status to penicillin; Z79.899 Other long term (current) drug therapy; W25.XXXA Contact with sharp glass, initial encounter; Y93.89 Activity, other specified; Y92.89 Other specified places as the place of occurrence of the external cause; Y99.8 Other external cause status
CPT/HCPCS: Q0162